=== PATIENT | female | born 1950 | race Caucasian/White ===

== ENCOUNTER 2016-11-17 22:46 | Emergency (ER) | payer MEDICARE ==
[~2016-11-17] VITALS: Ht 175.3 cm; Wt 81.6 kg
[~2016-11-17 22:46] MED LIST: ATEN100T PO; GLU500 PO; LISI-217 PO; OXYB5TAB11 PO; SIMV20TA6 PO; SULF1TAB48 PO
[2016-11-17 22:57] VITALS: BP 165/109; PULSE 76; RESP 14; TEMP 97.1; O2SAT 97
[2016-11-18] MEDS ORDERED: HYDROcodone/ACETAMIN 7.5-325 MG TAB PO ONE (01:30)
[2016-11-18 01:49] VITALS: BP 140/84; PULSE 72; RESP 14; TEMP 97.1; O2SAT 97
== END 2016-11-18 01:49 | disposition home or self-care (01) ==
LOC: SED 22:46
DX: S00.83XA Contusion of other part of head, initial encounter (principal); T14.8 Other injury of unspecified body region; F03.90 Unspecified dementia, unspecified severity, without behavioral disturbance, psychotic disturbance, mood disturbance, and anxiety; E11.9 Type 2 diabetes mellitus without complications; I10 Essential (primary) hypertension; Z88.1 Allergy status to other antibiotic agents; W01.0XXA Fall on same level from slipping, tripping and stumbling without subsequent striking against object, initial encounter; Y93.89 Activity, other specified; Y99.8 Other external cause status; Y92.89 Other specified places as the place of occurrence of the external cause
CPT/HCPCS: 70450-TC; 70486-TC; 73564; 99284

== ENCOUNTER 2024-07-30 02:08 | Emergency (ER) | payer MEDICARE ==
[~2024-07-30] VITALS: Ht 165.1 cm; Wt 90.7 kg
[~2024-07-30 02:08] MED LIST changes: +OXYB-31 PO; -OXYB5TAB11 PO; +SIMV-43 PO; -SIMV20TA6 PO
[2024-07-30 02:35] VITALS: BP_SYST 193; PULSE 82; RESP 30; TEMP 98; O2SAT 94
[2024-07-30 02:46] LABS: ABG O2 SAT% ESTIMATE 92.8 % (94.0-98.0); ALLEN'S TEST POSITIVE (P); BLOOD GAS BASE EXCESS 0.9 mmol/L (-2.0-3.0); BLOOD GAS HCO3 25.4 mmol/L (21.0-28.0); BLOOD GAS PCO2 39.9 mmHg (32.0-45.0); BLOOD GAS PH 7.421 (7.350-7.450); BLOOD GAS PO2 63.6 mmHg (83.0-108.0)
[2024-07-30 02:56] LABS: BASOPHILS # (AUTO) 0.1 K/uL (0.0-0.2); BASOPHILS % (AUTO) 0.4 % (0.0-2.0); EOSINOPHILS # (AUTO) 0.4 K/uL (0.0-0.4); EOSINOPHILS % (AUTO) 2.4 % (0.0-4.0); HEMATOCRIT 34.1 % (36-48); HEMOGLOBIN 11.4 g/dL (12.0-16.0); LYMPHOCYTES # (AUTO) 1.9 K/uL (1.0-5.5); LYMPHOCYTES % (AUTO) 11.8 % (20.5-51.5); MEAN CORPUSCULAR HEMOGLOBIN 28 pg (27-31); MEAN CORPUSCULAR HGB CONC 34 % (32-36); MEAN CORPUSCULAR VOLUME 82 fL (79.0-98.0); MONOCYTES # (AUTO) 1.2 K/uL (0.0-1.0); MONOCYTES % (AUTO) 7.2 % (1.7-9.3); NEUTROPHILS # (AUTO) 12.7 K/uL (1.8-7.7); NEUTROPHILS % (AUTO) 78.2 % (40.0-70.0); PLATELET COUNT (AUTO) 379 K/uL (130-430); RED BLOOD CELL COUNT(AUTO) 4.14 MIL/uL (4.2-6.2); RED CELL DISTRIBUTION WIDTH 14.9 % (9.0-15.0); WHITE BLOOD COUNT (AUTO) 16.3 K/uL (4.8-10.8)
[2024-07-30] MEDS: NITROGLYCERIN 1 INCH (GM) OINT. TP ONE (03:00)
[2024-07-30] MEDS: NITROGLYCERIN 0.4 MG TAB.SUBL SL ONE (03:00)
[2024-07-30 03:17] LABS: ALANINE AMINOTRANSFERASE 25 U/L (12-78); ALBUMIN 3.7 g/dL (3.4-4.8); ANION GAP 13 (5-15); ASPARTATE AMINOTRANSFERASE 22 U/L (10-37); BILIRUBIN,DIRECT 0.2 mg/dL (0.0-0.3); CARBON DIOXIDE 26 mmol/L (23-29); CHLORIDE 96 mmol/L (98-107); CREATININE 0.89 mg/dL (0.55-1.30); GLUCOSE 176 mg/dL (74-106); POTASSIUM 3.7 mmol/L (3.5-5.1); SODIUM SERUM 135 mmol/L (136-145); TOTAL BILIRUBIN 0.6 mg/dL (0.0-1.0); TOTAL PROTEIN, SERUM 7.7 g/dL (6.4-8.3); UREA NITROGEN, BLOOD 8 mg/dL (8-21)
[2024-07-30] MEDS: FUROSEMIDE 40 MG/4 ML VIAL IVP ONE (03:54)
[2024-07-30] MEDS: ALBUTEROL SULFATE 0.083% 2.5 MG/3 ML VIAL.NEB INH ONE (04:45)
[2024-07-30 05:31] LABS: BILIRUBIN,URINE NEGATIVE (NEGATIVE); BLOOD, URINE NEGATIVE (NEGATIVE); CLARITY/URINE CLEAR (CLEAR); COLOR,URINE YELLOW (YELLOW); GLUCOSE,URINE NEGATIVE (NEGATIVE); KETONES,URINE TRACE (NEGATIVE); LEUKOCYTE ESTERASE ,URINE NEGATIVE (NEGATIVE); NITRITE, URINE NEGATIVE (NEGATIVE); PROTEIN URINE 2+ (NEGATIVE); UROBILINOGEN,URINE 0.2 (0.2-1.0)
[2024-07-30] MEDS: methylPREDNISolone SOD SUCC/PF 62.5 MG/ML VIAL IVP ONE (05:32)
[2024-07-30 05:33] LABS: BACTERIA,URINE RARE /HPF (None Seen)
[2024-07-30 08:51] VITALS: BP_SYST 152; PULSE 73; RESP 16; TEMP 97.3; O2SAT 97
== END 2024-07-30 08:48 | disposition short-term general hospital (02) ==
LOC: SED 02:08
DX: R09.02 Hypoxemia (principal); I11.0 Hypertensive heart disease with heart failure; I50.9 Heart failure, unspecified; J98.01 Acute bronchospasm; E11.9 Type 2 diabetes mellitus without complications; Z88.1 Allergy status to other antibiotic agents; Z79.84 Long term (current) use of oral hypoglycemic drugs; Z79.899 Other long term (current) drug therapy
CPT/HCPCS: 36600; 71045; 80048; 80076; 81000; 81001; 81002; 81015; 82803; 83880; 84484; 85025; 85379; 87086; 94640; 96374; 96375; 99285; J1940; J2930